=== PATIENT | female | born 1990 | race Caucasian/White ===

== ENCOUNTER 2022-06-05 14:46 | Emergency (ER) | payer BC ==
[2022-06-05 15:06] VITALS: TEMP 97
[2022-06-05] MEDS ORDERED: diphenhydrAMINE 50 MG/ML 1 ML VIAL IVP STA (15:35)
[2022-06-05] MEDS ORDERED: FAMOTIDINE 20 MG/2 ML VIAL IV STA (15:35)
[2022-06-05 16:04] LABS: Basophils # (A) 0.1 k/uL (0-0.2); Basophils % (A) 1 %; Eosinophils # (A) 0.7 k/uL (0-0.7); Eosinophils % (A) 5 %; HCT 36.5 % (34.0-46.0); HGB 13.1 gm/dL (11.4-16.0); Lymphocytes # (A) 2.1 k/uL (1.0-4.8); Lymphocytes % (A) 14 %; MCH 33.5 pg (25.0-35.0); MCV 93.1 fL (80.0-100.0); Mean Platelet Volume 7.8; Monocytes # (A) 0.6 k/uL (0-1.0); Monocytes % (A) 4 %; Neutrophils # (A) 10.7 k/uL (1.3-7.7); Neutrophils % (A) 74 %; Platelet Count 250 k/uL (150-450); RBC 3.92 m/uL (3.80-5.40); RDW 12.6 % (11.5-15.5); WBC 14.5 k/uL (3.8-10.6)
--- NOTE | 2022-06-05 16:06 | ED ---
General Adult HPI - General Chief complaint: Allergic Reaction Stated complaint: Alergic reaction Time Seen by Provider: 06/05/22 15:25 Source: patient, RN notes reviewed Mode of arrival: ambulatory Limitations: no limitations - History of Present Illness Initial comments: Patient is a pleasant 31-year-old female presenting to the emergency department with rash. Onset of symptoms was around a half hour prior to arrival. Patient states symptoms started to improve. Patient does have swelling of the lips. Upper lip has resolved and lower lip is near resolved. Patient has noticed redness to her palms as well as itching. Patient did not notice any other lesions. No dyspnea. No swelling of the tongue or posterior pharynx. Patient is 30 weeks . - Related Data Allergies Allergy/AdvReac Type Severity Reaction Status Date / Time gluten Allergy Vomiting Verified 06/05/22 15:25 Milk Containing Products Allergy Vomiting Verified 06/05/22 15:25 [Dairy] prednisone Allergy Hallucinati Verified 06/05/22 15:07 ons soy Allergy Vomiting Verified 06/05/22 15:25 Review of Systems ROS Statement: Those systems with pertinent positive or pertinent negative responses have been documented in the HPI. ROS Other: All systems not noted in ROS Statement are negative. Constitutional: Denies: fever Eyes: Denies: eye pain ENT: Reports: as per HPI. Denies: ear pain Respiratory: Denies: cough, dyspnea Cardiovascular: Denies: chest pain Endocrine: Denies: fatigue Gastrointestinal: Denies: abdominal pain Genitourinary: Denies: dysuria Musculoskeletal: Denies: back pain Skin: Reports: as per HPI Neurological: Denies: weakness Past Medical History Past Medical History: No Reported History History of Any Multi-Drug Resistant Organisms: None Reported Past Surgical History: No Surgical Hx Reported Past Psychological History: No Psychological Hx Reported Smoking Status: Never smoker Past Alcohol Use History: None Reported Past Drug Use History: None Reported General Exam Limitations: no limitations General appearance: alert, in no apparent distress Head exam: Present: normocephalic Eye exam: Present: normal appearance ENT exam: Present: other (Minimal edema of the lower lip. No edema of the posterior pharynx or tongue.) Neck exam: Present: normal inspection Respiratory exam: Present: normal lung sounds bilaterally Cardiovascular Exam: Present: regular rate, normal rhythm GI/Abdominal exam: Present: soft. Absent: tenderness Extremities exam: Present: normal inspection, full ROM Neurological exam: Present: alert Psychiatric exam: Present: normal affect, normal mood Skin exam: Present: other (Trace erythema bilateral palms) Course Vital Signs 06/05/22 06/05/22 15:02 16:55 Temperature 97 F L Pulse Rate 100 77 Respiratory 20 16 Rate Blood Pressure 146/90 108/68 O2 Sat by Pulse 96 97 Oximetry Medical Decision Making - Medical Decision Making Patient reevaluated and feeling much better. Patient updated on need for follow-up. Patient will go to [facility] for nonstress this. - Lab Data Result diagrams: 06/05/22 15:57 06/05/22 15:57 Lab Results 06/05/22 06/05/22 06/05/22 Range/Units 15:57 15:57 15:57 WBC 14.5 H (3.8-10.6) k/uL RBC 3.92 (3.80-5.40) m/uL Hgb 13.1 (11.4-16.0) gm/dL Hct 36.5 (34.0-46.0) % MCV 93.1 (80.0-100.0) fL MCH 33.5 (25.0-35.0) pg MCHC 36.0 (31.0-37.0) g/dL RDW 12.6 (11.5-15.5) % Plt Count 250 (150-450) k/uL MPV 7.8 Neutrophils % 74 % Lymphocytes % 14 % Monocytes % 4 % Eosinophils % 5 % Basophils % 1 % Neutrophils # 10.7 H (1.3-7.7) k/uL Lymphocytes # 2.1 (1.0-4.8) k/uL Monocytes # 0.6 (0-1.0) k/uL Eosinophils # 0.7 (0-0.7) k/uL Basophils # 0.1 (0-0.2) k/uL PT 9.5 (9.0-12.0) sec INR 0.9 (<1.2) APTT 22.3 (22.0-30.0) sec Sodium 134 L (137-145) mmol/L Potassium 4.2 (3.5-5.1) mmol/L Chloride 108 H (98-107) mmol/L Carbon Dioxide 21 L (22-30) mmol/L Anion Gap 5 mmol/L BUN 7 (7-17) mg/dL Creatinine 0.61 (0.52-1.04) mg/dL Est GFR (CKD-EPI)AfAm >90 (>60 ml/min/1.73 sqM) Est GFR (CKD-EPI)NonAf >90 (>60 ml/min/1.73 sqM) Glucose 87 (74-99) mg/dL Calcium 9.1 (8.4-10.2) mg/dL Total Bilirubin 0.3 (0.2-1.3) mg/dL AST 32 (14-36) U/L ALT 29 (4-34) U/L Alkaline Phosphatase 142 H (38-126) U/L Total Protein 5.9 L (6.3-8.2) g/dL Albumin 3.2 L (3.5-5.0) g/dL HCG, Quant 48440.1 mIU/mL Disposition Clinical Impression: Angioedema Disposition: HOME SELF-CARE Condition: Stable Instructions (If sedation given, give patient instructions): Angioedema (ED) Additional Instructions: Continue [id number] Pepcid and Benadryl for the next 5 days. Please go to [facility] for monitor. Please do follow-up with your [facility] in the next 24 hours for repeat evaluation. Return for difficulty breathing, swelling of the throat, tongue, or lips, worsening symptoms or any other concerns. Is patient prescribed a controlled substance at d/c from ED?: No Referrals: Rose Stovall III, MD [Primary Care Provider] - 1-2 days Time of Disposition: 17:07
[2022-06-05 16:12] LABS: ALT 29 U/L (4-34); AST 32 U/L (14-36); African American GFR (CKD) >90 (>60 ml/min/1.73 sqM); Albumin 3.2 g/dL (3.5-5.0); Alkaline Phosphatase 142 U/L (38-126); Anion Gap 5 mmol/L; Blood Urea Nitrogen 7 mg/dL (7-17); Calcium 9.1 mg/dL (8.4-10.2); Carbon Dioxide 21 mmol/L (22-30); Chloride 108 mmol/L (98-107); Glucose 87 mg/dL (74-99); Non-African American GFR(CKD) >90 (>60 ml/min/1.73 sqM); Sodium 134 mmol/L (137-145); Total Bilirubin 0.3 mg/dL (0.2-1.3); Total Protein 5.9 g/dL (6.3-8.2)
[2022-06-05 16:14] LABS: INR 0.9 (<1.2); Partial Thromboplastin Time 22.3 sec (22.0-30.0); Prothrombin Time 9.5 sec (9.0-12.0)
[2022-06-05 16:58] LABS: HCG,Quantitative Serum 26782.1 mIU/mL; Potassium 4.2 mmol/L (3.5-5.1)
[2022-06-05 16:59] VITALS: BP 108/68; PULSE 77; RESP 16
== END 2022-06-05 17:10 | disposition home or self-care (01) ==
LOC: EC 14:46
DX: T78.3XXA Angioneurotic edema, initial encounter (principal); Z88.3 Allergy status to other anti-infective agents; Z88.8 Allergy status to other drugs, medicaments and biological substances
CPT/HCPCS: 36415; 80053; 85025; 85610; 85730; 84702; 99283; 96374; 96375; J1200

== ENCOUNTER 2022-06-05 17:23 | Outpatient (CLI) | payer BC ==
[2022-06-05 18:25] VITALS: BP 129/69; PULSE 81; RESP 17; TEMP 97.2
--- NOTE | 2022-06-15 11:31 | P.MSEPDOC ---
Presenting Problems - Arrival Data Date of Arrival on Unit: 06/05/22 Time of Arrival on Unit: 17:23 Mode of Transport: Ambulatory - Complaint OB-Reason for Admission/Chief Complaint: NST Comment: Pt admitted from ER with c/o allergic reaction treated in ER and sent to OB triage for NST Medical History - Information : 1 Para: 0 Term: 0 : 0 Abortions: Spontaneous or Elective: 0 Number of Living Children: 0 - Gestational Age Gestational Age by SUSAN (wks/days): 30 Weeks and 0 Days Review of Systems - Review of Systems Constitutional: No problems Breast: No problems ENT: No problems Cardiovascular: No problems Respiratory: No problems Gastrointestinal: No problems Genitourinary: No problems Musculoskeletal: No problems Neurological: No problems Skin: No problems Vital Signs - Temperature Temperature: 97.2 F Temperature Source: Temporal Artery Scan - Pulse Pulse Oximetery Pulse Rate: 81 Pulse Assessment Method: Automatic Cuff - Respirations Respiratory Rate: 17 Oxygen Delivery Method: Room Air - Blood Pressure Right Arm Blood Pressure: 129/69 Blood Pressure Mean: 89 Blood Pressure Source: Automatic Cuff Medical Screen Scoring - Assessment - Baby A Baseline FHR: 130 Heart Rate - NICHD Category: Category I (Normal) NST: Reactive Physician Notification - Physician Notified Physician Notified Date: 06/05/22 Physician Notified Time: 18:03 Physician: Ryan Booth Order Received: Yes - Notification Comment Comment: RN spoke with Dr. Booth regarding triage pt presenting from the ER for an. allergic reaction that needs an NST. Reported on maternal vital signs, category 1. reactive NST, contx pattern and that pt was already cleared by the ER. Orders received. to discharge pt. Maternal Triage Index - Maternal Triage Index Presenting for scheduled procedure w/no complaint: No - Stat/Priority 1 Stat Priority 1: No - Urgent/Priority 2 Urgent Priority 2: No - Prompt/Priority 3 Prompt Priority 3: No - Non-Urgent/Priority 4 Non-Urgent Priority 4: Yes Criteria Met for Priority 4: Pt admitted from ER with c/o allergic reaction treated in ER and sent to OB triage for NST Disposition - Disposition OB Disposition: Discharge to home, Written follow up instructions reviewed Discharge Date: 06/05/22 Discharge Time: 18:09 I agree with the RN Medical Screening Exam: Yes Physician's MSE Comment: I have neither seen nor examined the patient. Case reviewed; plan agreed upon as documented in EMR&OBIX.: Yes Diagnosis: RELATED CONDITIONS, UNSPECIFIED, THIRD TRIMESTER
== END 2022-06-05 18:09 | disposition home or self-care (01) ==
LOC: FBPOP 17:23
PROVIDERS: ATTEND Obstetrics & Gynecology
DX: O26.893 Other specified pregnancy related conditions, third trimester (principal); Z3A.30 30 weeks gestation of pregnancy; Z88.8 Allergy status to other drugs, medicaments and biological substances; Z91.011 Allergy to milk products; Z91.018 Allergy to other foods
CPT/HCPCS: 59025; 99213

== ENCOUNTER 2024-04-20 09:51 | Inpatient (IN) | payer BC ==
[2024-04-13 08:30] VITALS: BMI 40.0
[2024-04-20] MEDS ORDERED: METHYLERGONOVINE 0.2 MG/ML 1 ML AMP IM PRN (10:14)
[2024-04-20] MEDS ORDERED: miSOPROStoL 200 MCG TAB PO PRN (10:14)
[2024-04-20] MEDS ORDERED: CARBOPROST TROMETHAMINE 250 MCG/ML 1 ML AMP IM PRN (10:14)
[2024-04-20] MEDS ORDERED: OXYTOCIN 10 UNIT/ML 1 ML VIAL IM PRN (10:14)
[2024-04-20] MEDS ORDERED: TRANEXAMIC 1,000 MG/100ML-NACL 1,000 MG in EMPTY BAG 1 BAG IV PRN (10:14)
[2024-04-20] MEDS: LACTATED RINGERS 1,000 ML IV SCH (10:27)
[2024-04-20] MEDS ORDERED: OXYTOCIN 30 UNITS/500 ML NS 30 UNIT in SALINE 1 500ML.BAG IV SCH (10:30)
[2024-04-20 10:42] LABS: Basophils # (A) 0.1 k/uL (0-0.2); Basophils % (A) 1 %; Eosinophils # (A) 0.2 k/uL (0-0.7); Eosinophils % (A) 2 %; HCT 34.9 % (34.0-46.0); HGB 11.6 gm/dL (11.4-16.0); Lymphocytes # (A) 2.3 k/uL (1.0-4.8); Lymphocytes % (A) 19 %; MCH 29.1 pg (25.0-35.0); MCHC 33.1 g/dL (31.0-37.0); MCV 87.8 fL (80.0-100.0); Mean Platelet Volume 8.5; Monocytes # (A) 0.6 k/uL (0-1.0); Monocytes % (A) 5 %; Neutrophils # (A) 8.9 k/uL (1.3-7.7); Neutrophils % (A) 71 %; Platelet Count 264 k/uL (150-450); RBC 3.98 m/uL (3.80-5.40); RDW 14.1 % (11.5-15.5); WBC 12.4 k/uL (3.8-10.6)
[2024-04-20] MEDS: CITRIC ACID-SODIUM CITRATE 15 ML CUP PO ONE (12:03)
[2024-04-20] MEDS ORDERED: OXYTOCIN 30 UNITS/500 ML NS BAG IV ONE (12:22)
[2024-04-20] MEDS ORDERED: MORPHINE SULFATE (PF) 0.3 MG/0.3 ML SYR ONE (12:22)
[2024-04-20] MEDS ORDERED: NALBUPHINE 10 MG/ML (10 ML MDV) ONE (12:22)
[2024-04-20] MEDS ORDERED: ONDANSETRON 4 MG/2 ML VIAL ONE (12:22)
[2024-04-20] MEDS ORDERED: SIMETHICONE 80 MG CHEWABLE PO PRN (13:07)
[2024-04-20] MEDS ORDERED: NALOXONE 0.4 MG/ML 1 ML VIAL IV PRN ×2 (13:07→13:41)
[2024-04-20] MEDS ORDERED: diphenhydrAMINE 50 MG/ML 1 ML VIAL IVP PRN (13:07)
[2024-04-20] MEDS ORDERED: ONDANSETRON 4 MG/2 ML VIAL IVP PRN (13:07)
[2024-04-20] MEDS ORDERED: ZOLPIDEM 5 MG TAB PO PRN (13:07)
[2024-04-20] MEDS ORDERED: diphenhydrAMINE 25 MG CAP PO PRN (13:07)
[2024-04-20] MEDS ORDERED: diphenhydrAMINE 50 MG CAP PO PRN (13:07)
--- NOTE | 2024-04-20 13:13 | P.HPOB ---
History of Present Illness H&P Date: 04/20/24 Chief Complaint: IUP at 39 and 2, history of x 1 desires repeat 33-year-old G2, P1 at 39-2/7 weeks that presents to labor delivery for scheduled repeat . Patient has been receiving routine care which has been essentially uncomplicated. Patient notes good movement denies vaginal bleeding or loss of fluid. On blood work this patient has a blood type of O-, rubella status immune, hepatitis B surface engine negative, HIV negative, RPR is nonreactive, grew beta strep culture is negative. Review of Systems Constitutional: Denies chills, Denies fatigue, Denies fever Ears, nose, mouth and throat: Denies headache Cardiovascular: Reports leg edema Respiratory: Denies dyspnea Gastrointestinal: Denies nausea, Denies vomiting Genitourinary: Reports Past Medical History Past Medical History: No Reported History History of Any Multi-Drug Resistant Organisms: None Reported Past Surgical History: No Surgical Hx Reported Additional Past Surgical History / Comment(s): Finger surgery, [place] tooth extraction. 2022. Past Anesthesia/Blood Transfusion Reactions: No Reported Reaction Additional Past Anesthesia/Blood Transfusion Reaction / Comment(s): No hx of blood transfusion Past Psychological History: Anxiety Smoking Status: Never smoker Past Alcohol Use History: None Reported Past Drug Use History: None Reported - Past Family History Mother Family Medical History: No Reported History Medications and Allergies Home Medications Medication Instructions Recorded Confirmed Type Aspirin [Adult Low Dose Aspirin EC] 81 mg PO QAM 06/05/22 04/20/24 History Sertraline [Zoloft] 25 mg PO QAM 06/05/22 04/20/24 History Pre Vitamin(Unknown Dose 1 dose PO QAM 04/13/24 04/20/24 History Allergies Allergy/AdvReac Type Severity Reaction Status Date / Time prednisone Allergy Hallucinati Verified 04/20/24 10:11 ons Exam Osteopathic Statement: *. No significant issues noted on an osteopathic structural exam other than those noted in the History and Physical/Consult. Vital Signs Temp Pulse Resp BP Pulse Ox 04/20/24 10:11 97.4 F L 97 18 142/79 96 Intake and Output 04/19/24 04/20/24 04/20/24 22:59 06:59 14:59 Other: Weight 96.162 kg Targeted physical exam is performed without difficultly, in general is a well- nourished well-developed female in no acute distress, breathing is nonlabored, heart has a regular rhythm, abdomen is gravid and appropriate for gestational age, cervical exam is deferred, heart tones are noted to be category 1 and she is not mary. Results Result Diagrams: 04/20/24 10:30 Abnormal Lab Results - Last 24 Hours (Table) 04/20/24 Range/Units 10:30 WBC 12.4 H (3.8-10.6) k/uL Neutrophils # 8.9 H (1.3-7.7) k/uL Assessment and Plan (1) History of section Narrative/Plan: Desires repeat Current Visit: Yes Status: Acute Code(s): Z98.891 - HISTORY OF UTERINE SCAR FROM PREVIOUS SURGERY SNOMED Code(s): 575009912 (2) Term Current Visit: No Status: Acute Code(s): Z34.90 - ENCNTR FOR SUPRVSN OF NORMAL , UNSP, UNSP TRIMESTER SNOMED Code(s): 86131944 Plan: 33-year-old G2, P1 at 39-2/7 weeks that presents for repeat section. Patient is counseled on repeat section all questions are answered. Patient denies concerns and will proceed to operating suite.
[2024-04-20] MEDS ORDERED: LACTATED RINGERS 1,000 ML IV SCH (13:15)
--- NOTE | 2024-04-20 13:16 | P.OP ---
Date of Procedure: 04/20/24 Preoperative Diagnosis: IUP at 39 2, history of section x 1 desires repeat Postoperative Diagnosis: Same Procedure(s) Performed: Repeat section Anesthesia: spinal Surgeon: Kathryn Maguire Finishing Supervisor #1: Shannon Burger Estimated Blood Loss (ml): 334 IV fluids (ml): 600 Urine output (ml): 25 (Clear yellow) Pathology: none sent Condition: stable Disposition: observation Indications for Procedure: History of section x 1, desires repeat Operative Findings: Viable female infant delivered at 1242, weight of 7 pounds 14 ounces, Apgars of 9 and 9 at 1 and 5 minutes respectively. Description of Procedure: The patient was prepped and draped in the usual fashion after spinal anesthesia was administered by the anesthesia department. A Pfannenstiel incision was made and extended of the abdominal cavity without difficulty. The bladder peritoneum was elevated and incised and reflected distally. A 2 cm incision was made in t he transverse plane of the lower uterine segment to enter the uterus at which time clear fluid was noted. The incision was extended in both directions using the bandage scissors. The head was encountered within the field and delivered up and through the incision where the nose and mouth were thoroughly suctioned. Remainder of the infant was delivered onto the surgical field where the cord was doubly clamped, cut, and the was passed for resuscitative measures with weight and Apgars as noted above. A segment of cord was then doubly clamped, cut, and set aside should cord gases become necessary. The placenta was delivered manually, intact, and was grossly normal with a grossly normal three-vessel cord. The uterus was exteriorized and the interior cavity of the uterus swept of any remaining placental and membranous fragments with a laparotomy sponge. The margins of the incision were grasped with allis clamps and the incision closed in 2 layers. First layer was a running locking layer of 0 Vicryl from margin to margin followed by a second layer of imbricating 0 Vicryl from margin to margin. Any small points of bleeding were then made hemostatic with the Bovie. Once hemostasis was achieved, the posterior cul-de-sac was suctioned with a guard and the uterine and ovarian findings are as noted above. The uterus was replaced within the abdominal cavity and the gut ters swept of any remaining blood fluid or clot. The incision was again reexamined and hemostasis was noted to be excellent. Any small point of bleeding were made hemostatic with the Bovie. Once hemostasis was achieved the parietal peritoneum was loosely reapproximated. The layer of muscles were examined and made hemostatic with the Bovie. Attention was then turned to the fascia which was closed in a running fashion from 1 lateral edge to the other with 0 Vicryl. The subcutaneous tissues were irrigated, made hemostatic with the Bovie, and reapproximated with a running stitch of 30 Vicryl. The skin was reapproximated with 4-0 Vicryl. Estimated blood loss for the case was approximately 334 mL. All sponge instrument and needle counts are correct. There were no complications. The patient tolerated the procedure well and proceeded to the recovery room in stable condition. Both mother and infant are resting comfortably in recovery.
[2024-04-20 13:36] VITALS: RESP 16
[2024-04-20] MEDS: ACETAMINOPHEN IV (For NPO) 1,000 MG in EMPTY BAG 1 BAG IVPB ONE (13:44)
[2024-04-20] MEDS: diphenhydrAMINE 50 MG/ML 1 ML VIAL IVP PRN (14:56)
[2024-04-20] MEDS: ACETAMINOPHEN TAB 500 MG TAB PO SCH (15:32)
[2024-04-20] MEDS: IBUPROFEN IV 800 MG in SODIUM CHLORIDE 0.9% 250 ML IV ONE (18:05)
[2024-04-20] MEDS: Rhogam IMMUNE GLOBULIN 1,500 UNIT/1 ML IM ONE (18:24)
[2024-04-21] MEDS: SENNOSIDES-DOCUSATE SODIUM 1 EACH TAB PO SCH (01:58)
[2024-04-21] MEDS: METOCLOPRAMIDE 5 MG/ML 2 ML VIAL IVP PRN (02:00)
[2024-04-21 02:25] LABS: Basophils # (A) 0.1 k/uL (0-0.2); Basophils % (A) 0 %; Eosinophils # (A) 0.1 k/uL (0-0.7); Eosinophils % (A) 1 %; HCT 32.9 % (34.0-46.0); Lymphocytes # (A) 1.8 k/uL (1.0-4.8); Lymphocytes % (A) 14 %; MCHC 33.4 g/dL (31.0-37.0); MCV 86.9 fL (80.0-100.0); Mean Platelet Volume 8.9; Monocytes # (A) 0.4 k/uL (0-1.0); Monocytes % (A) 3 %; Neutrophils # (A) 9.9 k/uL (1.3-7.7); Neutrophils % (A) 79 %; Platelet Count 227 k/uL (150-450); RBC 3.78 m/uL (3.80-5.40); RDW 14.6 % (11.5-15.5); WBC 12.6 k/uL (3.8-10.6)
[2024-04-21] MEDS: PRENATAL VIT-IRON-FOLIC ACID 1 EACH TABLET PO SCH (08:22)
[2024-04-21] MEDS: IBUPROFEN 800 MG TAB PO SCH (08:22)
[2024-04-21] MEDS: SERTRALINE 25 MG TAB PO SCH (08:40)
--- NOTE | 2024-04-21 08:41 | P.PNOBGPC ---
Subjective - Subjective Principal diagnosis: Postop day 1, repeat section Interval history: Patient is feeling well and is postoperative day #1. She is ambulating and voiding without difficulty. States her pain is well-controlled. She is breast- feeding without difficulty. She did have some episodes of nausea through the night resolved with medication. She is tolerating breakfast this morning. Patient reports: Reports appetite normal, Reports voiding normally, Reports pain well controlled, Reports ambulating normally [place]: doing well, nursing well Objective - Vital Signs Latest vital signs: Vital Signs Temp Pulse Resp BP Pulse Ox 04/21/24 08:00 97.6 F 69 16 110/72 04/21/24 06:00 16 98 04/21/24 04:00 16 04/21/24 02:00 16 96 04/21/24 00:00 98.0 F 80 16 124/80 96 04/20/24 23:38 16 04/20/24 22:00 16 97 04/20/24 20:00 98.0 F 69 16 132/82 97 04/20/24 18:26 97 04/20/24 18:00 16 04/20/24 16:41 16 04/20/24 16:00 98 F 58 L 16 120/68 98 04/20/24 15:05 96.8 F L 60 16 116/62 96 04/20/24 14:50 76 16 125/70 97 04/20/24 14:41 16 96 04/20/24 13:50 77 16 115/65 97 04/20/24 13:41 16 97 04/20/24 13:35 85 16 106/63 97 04/20/24 13:20 80 16 115/57 96 04/20/24 13:05 96.5 F L 74 16 107/51 96 04/20/24 10:11 97.4 F L 97 18 142/79 96 Intake and Output 04/20/24 04/21/24 04/21/24 22:59 06:59 14:59 Output Total 846 300 900 Balance -846 -300 -900 Output: Urine 800 300 900 Uretheral ([place]) 150 Output, Quantitative 46 Blood Loss Other: Voiding Method Indwelling Catheter # Voids 1 1 # Emeses 2 - Exam Extremities: Present: normal, edema Abdomen: Present: normal appearance, soft Incision: Present: normal, dry Uterus: Present: normal, firm - Labs Labs: Abnormal Lab Results - Last 24 Hours (Table) 04/20/24 04/21/24 Range/Units 10:30 02:13 WBC 12.4 H 12.6 H (3.8-10.6) k/uL RBC 3.78 L (3.80-5.40) m/uL Hgb 11.0 L (11.4-16.0) gm/dL Hct 32.9 L (34.0-46.0) % Neutrophils # 8.9 H 9.9 H (1.3-7.7) k/uL Assessment and Plan (1) History of section Current Visit: Yes Status: Acute Code(s): Z98.891 - HISTORY OF UTERINE SCAR FROM PREVIOUS SURGERY SNOMED Code(s): 126631605 (2) Term Current Visit: No Status: Acute Code(s): Z34.90 - ENCNTR FOR SUPRVSN OF NORMAL , UNSP, UNSP TRIMESTER SNOMED Code(s): 15520304 (3) S/P section Current Visit: No Status: Acute Code(s): Z98.891 - HISTORY OF UTERINE SCAR FROM PREVIOUS SURGERY SNOMED Code(s): 035377031 Plan: Patient is doing well postoperatively. Will encourage increased ambulation. Plan to discontinue dressing at 24 hours. Continue routine postoperative care.
--- NOTE | 2024-04-21 12:25 | P.PN ---
Progress Note - Text Progress Note Date: 04/21/24 Postoperative day 1 status post section under spinal anesthesia, and intrathecal morphine given for postoperative analgesia, patient doing well, there is no anesthesia related complications, Patient had no headache, vital signs stable , Assessment and plan= postop day 1 status post , doing well there is no anesthesia related complication.
--- NOTE | 2024-04-22 08:41 | P.DS ---
Providers Date of admission: 04/20/24 09:51 Expected date of discharge: 04/22/24 Attending physician: Kathryn Maguire Primary care physician: Stated None - Discharge Diagnosis(es) (1) History of section Current Visit: Yes Status: Acute (2) Term Current Visit: No Status: Acute (3) S/P section Current Visit: No Status: Acute Hospital Course: This is a 33-year-old G2 now P2 that presented to labor and delivery at 39-2/7 weeks for scheduled repeat section. Patient had been receiving routine care with myself which had been essentially uncomplicated. For full details in this patient please see the dictated history and physical. Patient was taken back to the operating suite where repeat section was performed without difficulty. Patient delivered a viable female at 1242, weight of 7 pounds 14 ounces, Apgars of 9 and 9 at 1 and 5 minutes respectively. For full details on the C- section please see the operative report. Patient has done well postoperatively. She is ambulating and voiding without difficulty. She is tolerating a regular diet without nausea or vomiting. She states her pain is well-controlled. She denies concerns. She would like discharge home later today. Patient Condition at Discharge: Good Plan - Discharge Summary Discharge Rx Participant: No New Discharge Prescriptions: No Action Aspirin [Adult Low Dose Aspirin EC] 81 mg PO QAM Sertraline [Zoloft] 25 mg PO QAM Pre Adolfo Vitamin(Unknown Dose 1 dose PO QAM Discharge Medication List Aspirin [Adult Low Dose Aspirin EC] 81 mg PO QAM 06/05/22 [History] Sertraline [Zoloft] 25 mg PO QAM 06/05/22 [History] Pre Adolfo Vitamin(Unknown Dose 1 dose PO QAM 04/13/24 [History] Follow up Appointment(s)/Referral(s): Kathryn Maguire DO [Doctor of Osteopathic Medicine] - 05/04/24 11:00 am (Post Appointment 06-01-2024 at 11am) Patient Instructions/Handouts: (DC), (GEN) Activity/Diet/Wound Care/Special Instructions: No tub baths or intercourse until 6 weeks . Patient is to make a routine postoperative check at 2 weeks. Steri-Strips will fall off at 10 to 14 days if they are still there at her 2-week postop appointment I will remove th em. [id number] ibuprofen 600 mg or 3 tablets every 6 hours as needed for pain postoperatively. Discharge Disposition: HOME SELF-CARE
[2024-04-22 09:04] VITALS: BP 138/72; PULSE 71; TEMP 98.2
== END 2024-04-22 11:40 | disposition home or self-care (01) | DRG 788 ==
LOC: 4FBP 09:51
PROVIDERS: ADMIT Obstetrics & Gynecology Obstetrics; ATTEND Obstetrics & Gynecology Obstetrics
PROC: 10D00Z1 Extraction of Products of Conception, Low, Open Approach (ICD-10-PCS; principal; 2024-04-20 12:38)
DX: O34.211 Maternal care for low transverse scar from previous cesarean delivery (principal); Z37.0 Single live birth; Z3A.39 39 weeks gestation of pregnancy; Z79.82 Long term (current) use of aspirin
CPT/HCPCS: 85025; 85461; 86850; 86900; 86901